=== PATIENT | male | born 1990 | race Caucasian/White ===

== ENCOUNTER 2021-01-12 14:29 | Emergency (ER) | payer BC ==
[2021-01-12 15:16] VITALS: TEMP 97.5
[2021-01-12] MEDS ORDERED: SODIUM CHLORIDE 0.9% 1,000 ML IV STA (15:51)
[2021-01-12] MEDS ORDERED: KETOROLAC 15 MG/ML 1 ML VIAL IVP STA (15:51)
[2021-01-12 16:20] LABS: ALT 102 U/L (4-49); AST 61 U/L (17-59); African American GFR (CKD) >90 (>60 ml/min/1.73 sqM); Albumin 4.6 g/dL (3.5-5.0); Alkaline Phosphatase 84 U/L (38-126); Amylase 38 U/L (30-110); Anion Gap 11 mmol/L; Blood Urea Nitrogen 15 mg/dL (9-20); Calcium 9.7 mg/dL (8.4-10.2); Carbon Dioxide 23 mmol/L (22-30); Chloride 103 mmol/L (98-107); Glucose 120 mg/dL (74-99); Lipase 31 U/L (23-300); Non-African American GFR(CKD) >90 (>60 ml/min/1.73 sqM); Potassium 4.1 mmol/L (3.5-5.1); Sodium 137 mmol/L (137-145); Total Bilirubin 0.9 mg/dL (0.2-1.3); Total Protein 7.3 g/dL (6.3-8.2)
[2021-01-12 16:25] LABS: Appearance,Urine Clear (Clear); Bilirubin,Urine Negative (Negative); Blood,Urine Negative (Negative); Color,Urine Yellow; Glucose,Urine (UA) Negative (Negative); Ketones,Urine Negative (Negative); Leukocyte Esterase,Urine Negative (Negative); Nitrite,Urine Negative (Negative); Protein,Urine Trace (Negative); Specific Gravity,Urine 1.033 (1.001-1.035); Urobilinogen,Urine <2.0 mg/dL (<2.0)
[2021-01-12 16:27] LABS: INR 0.9 (<1.2); Partial Thromboplastin Time 23.5 sec (22.0-30.0); Prothrombin Time 10.2 sec (9.0-12.0)
--- NOTE | 2021-01-12 16:29 | ED ---
Abdominal Pain HPI - General Chief Complaint: Abdominal Pain Stated Complaint: Abd Pain Time Seen by Provider: 01/12/21 15:30 Source: patient Mode of arrival: ambulatory Limitations: no limitations - History of Present Illness Initial Comments: Patient is a 30-year-old male presenting to the emergency Department with complaints of right upper quadrant pain has been increasing over the past 2 days. He states it does hurt with movement, it located in the right upper quadrant with some mild radiation towards the epigastric region. He denies any flank pain. He has been having increase in stools, no blood in the stools. He does admit to some mild nausea but no vomiting, no diarrhea. He denies any history of abdominal surgeries. Denies any fevers or chills, no chest pain or shortness of breath. He has no further complaints at this time. Upon arrival to the ER, his vitals are stable. - Related Data Home Medications Medication Instructions Recorded Confirmed No Known Home Medications 01/12/21 01/12/21 Allergies Allergy/AdvReac Type Severity Reaction Status Date / Time Milk Containing Products Allergy Unknown Verified 01/12/21 16:49 [Dairy] Review of Systems ROS Statement: Those systems with pertinent positive or pertinent negative responses have been documented in the HPI. ROS Other: All systems not noted in ROS Statement are negative. Past Medical History Additional Past Medical History / Comment(s): migraines History of Any Multi-Drug Resistant Organisms: None Reported Past Surgical History: No Surgical Hx Reported Past Psychological History: No Psychological Hx Reported Smoking Status: Never smoker Past Alcohol Use History: None Reported Past Drug Use History: None Reported General Exam - General Exam Comments Initial Comments: GENERAL: Patient is well-developed and well-nourished. Patient is nontoxic and in mild distress. HEAD: Atraumatic, normocephalic. EYES: Pupils equal round and reactive to light, extraocular movements intact, sclera anicteric, conjunctiva are normal. Eyelids were unremarkable. ENT: TMs normal, nares patent, oropharynx clear without exudates. Moist mucous membranes. NECK: Normal range of motion, supple without lymphadenopathy or JVD. LUNGS: Unlabored respirations. Breath sounds clear to auscultation bilaterally and e qual. No wheezes rales or rhonchi. HEART: Regular rate and rhythm without murmurs, rubs or gallops. ABDOMEN: Soft, tender to palpation in the right upper quadrant, positive Wilson's sign. normoactive bowel sounds. No masses appreciated. : Deferred MUSCULOSKELETAL: Normal extremities with adequate strength and normal range of motion, no pitting or edema. No clubbing or cyanosis. NEUROLOGICAL: Patient is alert and oriented x 3. Normal speech, normal gait. PSYCH: Normal mood, normal affect. SKIN: Warm, Dry, normal turgor, no rashes or lesions noted. Limitations: no limitations Course Vital Signs 01/12/21 14:57 Temperature 97.5 F L Pulse Rate 81 Respiratory 16 Rate Blood Pressure 129/77 O2 Sat by Pulse 96 Oximetry Medical Decision Making - Medical Decision Making Patient is a 30-year-old male here with right upper quadrant pain increasing over the past 2 days. No flank pain, no fevers. His vitals are stable. Labs show a stable white count, liver enzymes are very slightly bumped, lactic acid is normal, bilirubin is normal, lipase also normal. Urine shows no evidence of infection. Ultrasound of the gallbladder reveals no gallstones or dilated ducts, there is a cyst at the portal hepatis, most likely a complex list, suggestive benign abnormality. I discussed these findings with the patient. Patient was given fluids, pain control and has been resting comfortably. Patient will follow up with surgeon and I will give him referrals for primary care. He is agreeable to this plan of care. Return parameters were discussed with him and he verbalized understanding. Case discussed with Dr. Anderson. - Lab Data Result diagrams: 01/12/21 15:55 01/12/21 15:55 Lab Results 01/12/21 01/12/21 01/12/21 Range/Units 15:55 15:55 15:55 WBC 7.2 (3.8-10.6) k/uL RBC 5.65 (4.30-5.90) m/uL Hgb 17.2 (13.0-17.5) gm/dL Hct 48.5 (39.0-53.0) % MCV 85.8 (80.0-100.0) fL MCH 30.4 (25.0-35.0) pg MCHC 35.4 (31.0-37.0) g/dL RDW 13.5 (11.5-15.5) % Plt Count 270 (150-450) k/uL MPV 8.0 Neutrophils % 65 % Lymphocytes % 26 % Monocytes % 4 % Eosinophils % 4 % Basophils % 1 % Neutrophils # 4.7 (1.3-7.7) k/uL Lymphocytes # 1.9 (1.0-4.8) k/uL Monocytes # 0.3 (0-1.0) k/uL Eosinophils # 0.3 (0-0.7) k/uL Basophils # 0.0 (0-0.2) k/uL PT 10.2 (9.0-12.0) sec INR 0.9 (<1.2) APTT 23.5 (22.0-30.0) sec Sodium (137-145) mmol/L Potassium (3.5-5.1) mmol/L Chloride (98-107) mmol/L Carbon Dioxide (22-30) mmol/L Anion Gap mmol/L BUN (9-20) mg/dL Creatinine (0.66-1.25) mg/dL Est GFR (CKD-EPI)AfAm (>60 ml/min/1.73 sqM) Est GFR (CKD-EPI)NonAf (>60 ml/min/1.73 sqM) Glucose (74-99) mg/dL Plasma Lactic Acid Sal (0.7-2.0) mmol/L Calcium (8.4-10.2) mg/dL Total Bilirubin (0.2-1.3) mg/dL AST (17-59) U/L ALT (4-49) U/L Alkaline Phosphatase (38-126) U/L Total Protein (6.3-8.2) g/dL Albumin (3.5-5.0) g/dL Amylase (30-110) U/L Lipase (23-300) U/L Urine Color Yellow Urine Appearance Clear (Clear) Urine pH 6.0 (5.0-8.0) Ur Specific [place] 1.033 (1.001-1.035) Urine Protein Trace H (Negative) Urine Glucose (UA) Negative (Negative) Urine Ketones Negative (Negative) Urine Blood Negative (Negative) Urine Nitrite Negative (Negative) Urine Bilirubin Negative (Negative) Urine Urobilinogen <2.0 (<2.0) mg/dL Ur Leukocyte Esterase Negative (Negative) 01/12/21 01/12/21 Range/Units 15:55 15:55 WBC (3.8-10.6) k/uL RBC (4.30-5.90) m/uL Hgb (13.0-17.5) gm/dL Hct (39.0-53.0) % MCV (80.0-100.0) fL MCH (25.0-35.0) pg MCHC (31.0-37.0) g/dL RDW (11.5-15.5) % Plt Count (150-450) k/uL MPV Neutrophils % % Lymphocytes % % Monocytes % % Eosinophils % % Basophils % % Neutrophils # (1.3-7.7) k/uL Lymphocytes # (1.0-4.8) k/uL Monocytes # (0-1.0) k/uL Eosinophils # (0-0.7) k/uL Basophils # (0-0.2) k/uL PT (9.0-12.0) sec INR (<1.2) APTT (22.0-30.0) sec Sodium 137 (137-145) mmol/L Potassium 4.1 (3.5-5.1) mmol/L Chloride 103 (98-107) mmol/L Carbon Dioxide 23 (22-30) mmol/L Anion Gap 11 mmol/L BUN 15 (9-20) mg/dL Creatinine 0.80 (0.66-1.25) mg/dL Est GFR (CKD-EPI)AfAm >90 (>60 ml/min/1.73 sqM) Est GFR (CKD-EPI)NonAf >90 (>60 ml/min/1.73 sqM) Glucose 120 H (74-99) mg/dL Plasma Lactic Acid Sal 1.3 (0.7-2.0) mmol/L Calcium 9.7 (8.4-10.2) mg/dL Total Bilirubin 0.9 (0.2-1.3) mg/dL AST 61 H (17-59) U/L ALT 102 H (4-49) U/L Alkaline Phosphatase 84 (38-126) U/L Total Protein 7.3 (6.3-8.2) g/dL Albumin 4.6 (3.5-5.0) g/dL Amylase 38 (30-110) U/L Lipase 31 (23-300) U/L Urine Color Urine Appearance (Clear) Urine pH (5.0-8.0) Ur Specific [place] (1.001-1.035) Urine Protein (Negative) Urine Glucose (UA) (Negative) Urine Ketones (Negative) Urine Blood (Negative) Urine Nitrite (Negative) Urine Bilirubin (Negative) Urine Urobilinogen (<2.0) mg/dL Ur Leukocyte Esterase (Negative) Disposition Clinical Impression: Right upper quadrant pain Disposition: HOME SELF-CARE Condition: Stable Instructions (If sedation given, give patient instructions): Abdominal Pain (ED) Additional Instructions: Please return to the Emergency Department if symptoms worsen or any other concerns. Decrease intake of fatty foods. Continue to drink lots of fluids. Please follow up with surgeon as directed, referrals for primary care also included. Is patient prescribed a controlled substance at d/c from ED?: No Referrals: None,Stated [Primary Care Provider] - 1-2 days Chuckie Norman DO [Doctor of Osteopathic Medicine] - 1-2 days Daren Ralph MD [REFERRING] - 1-2 days Lupe Dela Cruz MD [STAFF PHYSICIAN] - 1-2 days Time of Disposition: 17:54
[2021-01-12 16:37] LABS: Basophils % (A) 1 %; Eosinophils # (A) 0.3 k/uL (0-0.7); Eosinophils % (A) 4 %; HCT 48.5 % (39.0-53.0); HGB 17.2 gm/dL (13.0-17.5); Lymphocytes # (A) 1.9 k/uL (1.0-4.8); Lymphocytes % (A) 26 %; MCH 30.4 pg (25.0-35.0); MCHC 35.4 g/dL (31.0-37.0); MCV 85.8 fL (80.0-100.0); Monocytes # (A) 0.3 k/uL (0-1.0); Monocytes % (A) 4 %; Neutrophils # (A) 4.7 k/uL (1.3-7.7); Neutrophils % (A) 65 %; Platelet Count 270 k/uL (150-450); RBC 5.65 m/uL (4.30-5.90); RDW 13.5 % (11.5-15.5); WBC 7.2 k/uL (3.8-10.6)
--- NOTE | 2021-01-12 16:50 | US ---
EXAMINATION TYPE: US gallbladder DATE OF EXAM: 01/12/2021 COMPARISON: NONE CLINICAL HISTORY: RUQ pain x 2 days. RUQ pain x 2 days. EXAM MEASUREMENTS: Liver Length: 20.51 cm Gallbladder Wall: 0.20 cm CBD: 0.36 cm Right Kidney: 11.9 x 6.3 x 5.5 cm Limited due to gas and patient body habitus. Pancreas: Appears hyperechoic. Tail obscured by gas. Liver: Appears enlarged and coarse. Increased echogenicity. Complex area seen anterior left lobe of the liver: 2.2 x 2.2 x 1.4 cm. Hypoechoic area seen anterior to the gabriele hepatis: 2.7 x 2.7 x 1.9 cm . Gallbladder: Appears anechoic. Fold seen. Evidence for sonographic Wilson's sign: No. CBD: Portions seen appear wnl. Right Kidney: No hydronephrosis or masses seen. Measures upper limits of normal. IMPRESSION: There is a cyst at the gabriele hepatis. No gallstones or dilated ducts. There is hypoechoic area in the left lobe of the liver there is not a simple cyst and is of uncertain significance. This is likely a complex cyst with sharp edges. Oval-shaped suggests benign abnormality. No ascites.
[2021-01-12 18:19] VITALS: BP 128/74; PULSE 78; RESP 20
== END 2021-01-12 18:18 | disposition home or self-care (01) ==
LOC: EC 14:29
DX: R10.11 Right upper quadrant pain (principal); Z91.011 Allergy to milk products
CPT/HCPCS: 99284; 96374; 96361; 36415; 80053; 82150; 83605; 83690; 85025; 85610; 85730; 81003; 76705; J1885

== ENCOUNTER 2023-04-09 02:56 | Emergency (ER) | payer BC, OTHER ==
[2023-04-09 03:22] VITALS: BP 186/98; PULSE 94; RESP 18; TEMP 98.8
[2023-04-09] MEDS ORDERED: dexAMETHasone 2 MG TAB PO STA (03:24)
[2023-04-09] MEDS ORDERED: MAG HYDROX/AL HYDROX/SIMETH 30 ML, HYOSCYAMINE ELIXIR 10 ML, LIDOCAINE VISCOUS 2% 10 ML PO STA ×3 (03:24)
[2023-04-09] MEDS ORDERED: IBUPROFEN 800 MG TAB PO STA (03:25)
[2023-04-09] MEDS ORDERED: DEXAMETHASONE SOD PHOSPHATE 10 MG/ML 1 ML VIAL IM STA (03:27)
[2023-04-09] MEDS ORDERED: AMOXIC-POT CLAV 875-125MG 1 EACH TAB PO STA (04:07)
--- NOTE | 2023-04-09 04:07 | ED ---
General Adult HPI - General Chief complaint: ENT Stated complaint: Sore Throat, trouble swallowing Time Seen by Provider: 04/09/23 03:18 Source: patient, RN notes reviewed, old records reviewed Mode of arrival: ambulatory Limitations: no limitations - History of Present Illness Initial comments: Patient is a 32-year-old male with past medical history is relatively unremarkable presents emergency Department complaining of sore throat for the last 2 days. Also has generalized nasal congestion. Does have a sick contact, his son has similar symptoms. Endorses low-grade fevers that are subjective at home. Hurts to swallow. Denies any difficulty breathing. This is very mild cough. Presents for further evaluation of this time. No significant past medical history. - Related Data Previous Rx's Medication Instructions Recorded Amoxic-Pot Clav 875-125Mg 1 tab PO Q12HR 7 Days #14 tab 04/09/23 [Augmentin 875-125] Allergies Allergy/AdvReac Type Severity Reaction Status Date / Time Milk Containing Products Allergy Unknown Verified 04/09/23 03:09 (Dairy) [Dairy] Review of Systems ROS Statement: Those systems with pertinent positive or pertinent negative responses have been documented in the HPI. Review of Systems: CONST: Denies fever EYES: Denies blurry vision ENT: Endorses nasal congestion, sore throat C/V: Denies Chest pain RESP: Denies shortness of breath GI: Denies abdominal pain : Denies dysuria SKIN: Denies rash. MSK: Denies joint pain. NEURO: Denies headache ROS Other: All systems not noted in ROS Statement are negative. Past Medical History Additional Past Medical History / Comment(s): migraines History of Any Multi-Drug Resistant Organisms: None Reported Past Surgical History: No Surgical Hx Reported Past Psychological History: No Psychological Hx Reported Smoking Status: Never smoker Past Alcohol Use History: None Reported Past Drug Use History: None Reported General Exam - General Exam Comments Initial Comments: General: Appears in mild discomfort. HEAD: Normal with no signs of head trauma. EYES: PERRLA, EOMI, conjunctiva normal, no discharge. ENT: Hearing grossly intact. Posterior oropharynx is erythematous. Uvula is midline. Tonsillar exudates present on bilateral tonsils. No stridor on auscultation. No for the mild swelling. No tongue swelling. Tolerating oral secretions. No hot potato voice. RESPIRATORY: Clear breath sounds bilaterally. No wheezes, rales, or rhonchi. C/V: Regular rate and rhythm. S1 and S2 auscultated. ABD: Abdomen is nondistended EXT: No obvious deformity SKIN: No rashes or lesions observed on exposed skin. NEURO: Alert and oriented 4. Limitations: no limitations Course Vital Signs 04/09/23 03:07 Temperature 98.8 F Pulse Rate 94 Respiratory 18 Rate Blood Pressure 186/98 O2 Sat by Pulse 96 Oximetry Medical Decision Making - Medical Decision Making Was pt. sent in by a medical professional or institution (, [facility], PHYSICIAN/INTERNIST, urgent care, hospital, or [place] [facility]...) When possible be specific @ -No Did you speak to anyone other than the patient for history (EMS, parent, family, police, friend...)? What history was obtained from this source @ -No Did you review nursing and triage notes (agree or disagree)? Why? @ -I reviewed and agree with nursing and triage notes Were old charts reviewed (outside hosp., previous admission, EMS record, old EKG, old radiological studies, urgent care reports/EKG's, [place] [facility] records)? Report findings @ -No old charts were reviewed Differential Diagnosis (chest pain, altered mental status, abdominal pain women, abdominal pain men, vaginal bleeding, weakness, fever, dyspnea, syncope, headache, dizziness, GI bleed, back pain, seizure, CVA, palpatations, mental health, musculoskeletal)? @ -COVID-19 infection, URI, viral syndrome, strep pharyngitis. This list is not all inclusive. EKG interpreted by me (3pts min.). @ -None done X-rays interpreted by me (1pt min.). @ -None done CT interpreted by me (1pt min.). @ -None done U/S interpreted by me (1pt. min.). @ -None done What testing was considered but not performed or refused? (CT, X-rays, U/S, labs)? Why? @ -None What meds were considered but not given or refused? Why? @ -None Did you discuss the management of the patient with other professionals (professionals i.e. [facility] Cerda, PHYSICIAN/INTERNIST, lab, RT, psych nurse, social science analyst, factory machine computer operator, teacher, admissions officer, case operator)? Give summary @ -No Was smoking cessation discussed for >3mins.? @ -No Was critical care preformed (if so, how long)? @ -No Were there social determinants of health that impacted care today? How? (Homelessness, low income, unemployed, alcoholism, drug addiction, transportation, low edu. Level, literacy, decrease access to med. care, [place] [facility], rehab)? @ -No Was there de-escalation of care discussed even if they declined (Discuss DNR or withdrawal of care, Hospice)? DNR status @ -No What co-morbidities impacted this encounter? (DM, HTN, Smoking, COPD, CAD, Cancer, CVA, ARF, Chemo, Hep., AIDS, mental health diagnosis, sleep apnea, morbid obesity)? @ -None Was patient admitted / discharged? Hospital course, mention meds given and route, prescriptions, significant lab abnormalities, going to OR and other pertinent info. @ -Based on the patient's presentation and physical exam, he presents with a sore throat. Findings concerning for strep pharyngitis. We will obtain prior as well as as well as strep swab. Vital signs are within acceptable limits. He'll be symptomatically treated with an IM injection of steroid as well as GI cocktail and ibuprofen. No concern for Anderson angina at this time. Patient is tolerating oral secretions. No respiratory distress. No stridor. Patient in agreement this plan. Patient's labs returned negative for Covid, flu, RSV, strep. I did update the patient as well as his . Due to the severity of his sore throat as well as the clinical findings suggestive of strep pharyngitis after discussion we will place him on antibiotics. I believe this is reasonable. Patient will be discharged home at this time. I will provide the patient with a prescription for Augmentin. I instructed the patient to follow up with their PCP in the next 1-3 days. I explained that the patient should return to the emergency department if they experience any worsening symptoms. Strict return precautions were discussed with the patient. The patient expressed understanding of these instructions. I answered all questions that the patient had. The patient was discharged home in good condition with their prescriptions and follow up information. Undiagnosed new problem with uncertain prognosis? @ -No Drug Therapy requiring intensive monitoring for toxicity (Heparin, Nitro, Insulin, Cardizem)? @ -No Were any procedures done? @ -No Diagnosis/symptom? @ -Pharyngitis Acute, or Chronic, or Acute on Chronic? @ -Acute Uncomplicated (without systemic symptoms) or Complicated (systemic symptoms)? @ -complicated Side effects of treatment? @ -No Exacerbation, Progression, or Severe Exacerbation? @ -No Poses a threat to life or bodily function? How? (Chest pain, [place], [place], pneumonia, PE, COPD, DKA, ARF, appy, cholecystitis, CVA, Diverticulitis, Homicidal, Suicidal, threat to staff... and all critical care pts) @ -No - Lab Data Lab Results 04/09/23 04/09/23 Range/Units 03:17 03:17 Influenza Type A (PCR) Not Detected (Not Detectd) Influenza Type B (PCR) Not Detected (Not Detectd) RSV (PCR) Not Detected (Not Detectd) SARS-CoV-2 (PCR) Not Detected (Not Detectd) Group A Strep (PCR) NOT DETECTED (Not Detectd) Disposition Clinical Impression: Pharyngitis Disposition: HOME SELF-CARE Condition: Good Instructions (If sedation given, give patient instructions): Pharyngitis (ED) Prescriptions: Amoxic-Pot Clav 875-125Mg [Augmentin 875-125] 1 tab PO Q12HR 7 Days #14 tab Is patient prescribed a controlled substance at d/c from ED?: No Referrals: None,Stated [Primary Care Provider] - 1-2 days Forms: Area PCPs Time of Disposition: 04:01
== END 2023-04-09 04:21 | disposition home or self-care (01) ==
LOC: EC 02:56
DX: J02.9 Acute pharyngitis, unspecified (principal); Z91.011 Allergy to milk products; Z20.822 Contact with and (suspected) exposure to COVID-19
CPT/HCPCS: 87651; 87636; 99283; 96372; J1100